=== PATIENT | female | born 1995 | race Caucasian/White ===

== ENCOUNTER 2018-04-20 23:49 | Emergency (ER) | payer OTHER ==
[~2018-04-20] VITALS: Ht 162.6 cm; Wt 55.8 kg
[2018-04-21] MEDS ORDERED: CEPHALEXIN500 MG PO (00:36)
[2018-04-21] MEDS ORDERED: NORCO 5-325 TA1 EACH PO (00:36)
== END 2018-04-21 00:53 | disposition home or self-care (01) ==
LOC: ED 23:49
PROC: 0HQMXZZ Repair Right Foot Skin, External Approach (ICD-10-PCS; principal; 2018-04-20)
DX: S91.311A Laceration without foreign body, right foot, initial encounter (principal); W18.30XA Fall on same level, unspecified, initial encounter; F17.200 Nicotine dependence, unspecified, uncomplicated
CPT/HCPCS: 12002; 99282